=== PATIENT | male | born 1990 | race Two or more races ===

== ENCOUNTER 2017-05-13 22:09 | Emergency (ER) | payer MEDICAID ==
[~2017-05-13] VITALS: Ht 175.3 cm; Wt 70.9 kg
[2017-05-13] MEDS ORDERED: TETanus/Pertussis (Acell)/Diphther VAC/PF (Tdap-Adult) 0.5ml syringe IMVAC ONE (22:30)
[2017-05-13 23:41] VITALS: BP 112/60
== END 2017-05-13 23:42 ==
LOC: ER 22:09
DX: S20.111A Abrasion of breast, right breast, initial encounter (principal); F15.10 Other stimulant abuse, uncomplicated; F17.210 Nicotine dependence, cigarettes, uncomplicated; V89.2XXA Person injured in unspecified motor-vehicle accident, traffic, initial encounter; Y93.89 Activity, other specified; Y92.89 Other specified places as the place of occurrence of the external cause; Y99.8 Other external cause status
CPT/HCPCS: 71046; 90471; 90715; 93005; 99284